=== PATIENT | female | born 1980 | race Caucasian/White ===

== ENCOUNTER 2017-11-03 18:29 | Emergency (ER) | payer MEDICAID ==
[2017-11-03] MEDS ORDERED: NS 1,000 ML IV ONE (18:41)
--- NOTE | 2017-11-03 18:44 | EDPHY ---
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 She has a medical & psychiatric history of PTSD, panic disorder, benzodiazepine dependence, borderline personality disorder, adjustment disorder, current living at a skilled nursing house, states that she remembers squatting down next to a dog and then was getting up and then is amnestic until EMS arrival. Colleagues witnessed her fall and impacted the occiput of her head with seizure-like movements. No oral trauma. No incontinence to stool or urine. At this time she is complaining of headache with no nausea or vomiting. No midline C-spine pain or peripheral paresthesia, weakness, numbness. No back or flank pain. No abdominal pain. No chest pain. No peripheral musculoskeletal pain. Denies alcohol or drug use. Has been compliant with medications. Has not missed her benzodiazepines or mass dosages of any other medications. Denies current or antecedent illness, malaise, flu- like symptoms. PRIMARY CARE PROVIDER:[facility] REVIEW OF SYSTEMS: A ten point review of systems was performed and is negative with the exception of the items mentioned in the HPI PAST MEDICAL/SURGICAL HISTORY: PTSD, panic disorder, benzodiazepine dependence , borderline personality disorder, adjustment disorder. No anticoagulant use. SOCIAL HISTORY: denies alcohol use at time of incident PHYSICAL EXAM 1) GENERAL: Well-developed, well-nourished, alert and oriented. Appears to be in no acute distress. Answering questions appropriately. 2) HEAD: Normocephalic, occipital laceration measuring 3) HEENT: Pupils equal, round, reactive to light bilaterally. Negative Horners. Nasopharynx, oropharynx, clear. No deformity or angulation of nose. No septal hematoma. No rhinorrhea. No oral trauma. No laceration or abrasion. Ears bilaterally with normal tympanic membranes. No hemotympanum. No fluid or blood in the external auditory canal. No raccoon eyes. No Rendon sign. Teeth are normally aligned with no gross malocclusion, TMJ bilaterally nontender, facial bones nontender including the zygomatic arch, maxilla mandible. 4) NECK: Cervical collar in place, taken down while holding in-line traction and patient is unable to completely differentiate true midline versus just lateral midline pain. No step-off no effusion noted. Cervical collar replaced until imaging studies performed. 5) LUNGS: Clear to auscultation bilaterally, no wheezes, no rhonchi, no retractions. No obvious signs of trauma. No chest wall pain. No flaring, no grunting. Moving symmetrically. No crepitus. 6) HEART: [Regular rate and rhythm, 7) ABDOMEN: No guarding, no rebound, no focal tenderness, no peritoneal signs, no signs of trauma, no ecchymosis 8) MUSCULOSKELETAL: Moving all extremities, no focal areas of tenderness, no obvious trauma. 9) BACK: No midline vertebral tenderness, no fluctuance, no step-off, no obvious trauma, no visual or palpable abnormality. 10) SKIN: Laceration to occiput a measuring 2 cm 11) NEURO: Awake, alert, and oriented to person, place and time. Answers questions appropriately. There were no obvious focal neurologic abnormalities. No cerebellar dysfunction. Cranial nerves 2 through to 12 intact. Normal steady gait. Upper and lower extremities bilaterally with strength 5 / 5, reflexes 2+. DIFFERENTIAL DIAGNOSIS: Not necessarily in any particular order, my differential diagnosis includes, but is not limited to, concussion, skull fracture, intraparenchymal contusion, subarachnoid, subdural and epidural hematoma. The patient understands that this diagnosis is provisional and can never be 100% accurate. (Wagner Carver) Constitutional: Initial Vital Signs Temperature (C) 37 C 11/03/17 18:42 Heart Rate 106 H 11/03/17 18:42 Respiratory Rate 18 11/03/17 18:42 Blood Pressure 126/69 H 11/03/17 18:42 O2 Sat (%) 94 11/03/17 18:42 O2 Delivery Mode Room Air Allergies/Adverse Reactions: haloperidol [From Haldol] Allergy (Intermediate, Verified 11/08/13 12:13) Other-Enter Comments haloperidol lactate [From Haldol] Allergy (Intermediate, Verified 11/08/13 12:13 ) Other-Enter Comments Home Medications: Medication Instructions Recorded Clonidine 11/03/17 FLUoxetine 11/03/17 Gabapentin 11/03/17 Ibuprofen [Motrin (*)] 600 mg PO Q6 #15 tab 11/03/17 Omeprazole 11/03/17 Prozac 10 MG (*) 11/03/17 Wellbutrin Xl 11/03/17 traMADol 11/03/17 Medical Decision Making - Diagnostics Imaging Results: Images reviewed myself (Wagner Carver) Procedures: Procedure: Laceration repair. I explained the indications, risks and benefits for both laceration repair and anesthetic administration. Verbal consent was obtained from the patient. The laceration on the occiput was anesthetized using 0.5% bupivicaine with epinephrine. After anesthetic administered the patient was observed for a period of time and had no apparent adverse effects. The wound was cleaned, prepped, draped in normal sterile fashion and explored to its base. No foreign body seen, no foreign bodies palpated. There were no deep structures involved. No galea defects The wound was repaired with 3 joyce. The wound repair was simple. The procedure was performed by myself. Patient has been informed that scarring will occur, although efforts have been made to minimize this. (Wagner Carver) ED Course/Re-evaluation: 6:43 p.m.: Head CT ordered in this patient for trauma for the following indication: Loss of consciousness and visible head trauma. I reviewed the patient's old medical records. Will obtain imaging and diagnostic studies. Care of patient under supervision of secondary supervising physician Dr Caballero . 7:12 p.m.: CT imaging the head and C-spine are negative for posttraumatic sequelae per Radiology interpretation with images reviewed by myself. Patient re-examined. She is answering questions appropriately. The patient's cervical collar is removed by myself at this time and she is able to perform full range of motion without eliciting midline pain or peripheral paresthesia, weakness, numbness. I believe her to have decision-making capacity. Cervical collar is discharged at this time. 8:34 p.m.: Re-evaluation with serial examinations. Patient is answering questions appropriately. Discussed her negative imaging results. She remains with a nonfocal neurologic exam. She has been provided usual and customary seizure precautions and instructions. At this time I do not think that hospitalization or emergent neurological consultation is indicated. (Wagner Carver) I did not see this patient while she was in the emergency department. However her care was discussed with the PA while the patient was in the department. I agree with treatment plan and management (AdaSarthak Fontenot) - Data Points Laboratory Results: Laboratory Results 11/03/17 18:45 11/03/17 18:45 Medications Given: Discontinued Medications Sodium Chloride (Ns) 1,000 mls @ 0 mls/hr IV ONCE ONE PRN Reason: Wide Open Stop: 11/03/17 18:42 Last Admin: 11/03/17 18:45 Dose: 1,000 mls Ibuprofen (Motrin) 800 mg PO EDNOW ONE Stop: 11/03/17 19:33 Last Admin: 11/03/17 19:55 Dose: 800 mg Departure - Departure Disposition: Home, Routine, Self-Care Clinical Impression: Seizure, Head injury, Occipital scalp laceration Condition: Fair Instructions: Head Injury (ED), Nonepileptic Seizures (ED) Additional Instructions: You may have had a seizure. Until your cleared by the your neurologist do not: Drive, swim alone, climb to heights, operate machinery ALTHOUGH THERE IS NO EVIDENCE OF SERIOUS HEAD INJURY AT THIS TIME, DELAYED SIGNS CAN APPEAR 24 TO 48 HOURS AFTER INJURY. PLEASE RETURN TO THE EMERGENCY DEPARTMENT (ED) IMMEDIATELY IF YOU HAVE INCREASED HEADACHE, PERSISTENT HEADACHE , VOMITING, WEAKNESS, CONFUSION OR VISUAL PROBLEMS. WE RECOMMEND THAT YOU DO NOT RESUME CONTACT SPORTS OR ACTIVITIES THAT TAKE COORDINATION OR BALANCE SUCH SKIING OR RIDING A BICYCLE UNTIL CLEARED TO DO SO BY YOUR DOCTOR OR BY A NEUROLOGIST. You need to return to the ER in 7 days for staple removal Referrals: [facility],. [Clinic] - 2-3 days, call for appt. Temo Cervantes MD [Medical Doctor] - 2-3 days, call for appt. Return, to the ER in 7 days for staple removal [Other] - As per Instructions Prescriptions: Ibuprofen [Motrin (*)] 600 mg PO Q6 #15 tab
--- NOTE | 2017-11-03 18:48 | CPEKG ---
Heart Rate: 97 RR Interval: 619 P-R Interval: 136 QRSD Interval: 78 QT Interval: 372 QTC Interval: 473 P Linden: 76 QRS Linden: 72 T Wave Linden: 5 EKG Severity - NORMAL ECG - EKG Impression: SINUS RHYTHM Electronically Signed By: Kodak Bush 05-Nov-2017 06:07:26
[2017-11-03 19:01] LABS: PLATELET COUNT 360 10^3/uL (150-400)
[2017-11-03] MEDS ORDERED: IBUPROFEN 800 MG TAB PO ONE (19:32)
[2017-11-03 20:58] VITALS: BP 129/79
== END 2017-11-03 21:04 | disposition home or self-care (01) ==
LOC: EDUNIT#
PROC: 0HQ0XZZ Repair Scalp Skin, External Approach (ICD-10-PCS; principal; 2017-11-03)
DX: S01.01XA Laceration without foreign body of scalp, initial encounter (principal); F17.200 Nicotine dependence, unspecified, uncomplicated; R56.9 Unspecified convulsions; W01.198A Fall on same level from slipping, tripping and stumbling with subsequent striking against other object, initial encounter; Y92.89 Other specified places as the place of occurrence of the external cause; Y99.0 Civilian activity done for income or pay; Y93.89 Activity, other specified
CPT/HCPCS: G0480

== ENCOUNTER → 2017-12-27 | Outpatient (CLI) | payer MEDICAID ==
--- NOTE | 2017-12-30 12:26 | CPEEG ---
[f rep st] ELECTROENCEPHALOGRAM DATE OF STUDY: 12/27/2017 INTERPRETATION: Normal EEG during wakefulness and sleep. There were no potentially epileptogenic ab normalities present during the recording. REPORT: This EEG contains 10 Hz alpha activity to the posterior head regions. There was no abnormal activation at rest, during photic stimulation or hyperventilation. The patient became drowsy and fe ll asleep during the study. There was no abnormal activation during drowsiness, sleep, or during carmen es of arousal. /[id number]/MODL
== END ==
LOC: FCPNEURO 07:48
PROVIDERS: ATTEND Psychiatry & Neurology Neurology
DX: G40.909 Epilepsy, unspecified, not intractable, without status epilepticus (principal)